=== PATIENT | male | born 1955 | race Caucasian/White ===

== ENCOUNTER 2016-07-02 15:48 | Emergency (ER) | payer BC ==
[~2016-07-02] VITALS: Ht 188 cm; Wt 147.4 kg
[~2016-07-02 15:48] MED LIST: /HCTZ25TA PO; /MOM400 PO; /SENOSTA PO; ASPI32ECTA PO; LISI5TAB PO; TYLE325T5 PO
[2016-07-02 15:49] VITALS: BP 146/80
[2016-07-02] MEDS ORDERED: ALLO100T PO (15:59)
[2016-07-02] MEDS ORDERED: TORS10TA3 PO (15:59)
[2016-07-02] MEDS ORDERED: CLEO300C2 PO (16:38)
[2016-07-02] MEDS ORDERED: NORCOTAB PO (16:38)
[2016-07-02] MEDS ORDERED: NORCO, ANEXSIA 5/325MG TABLET (HYDROcodone/ACETAMINOPHEN) PO ONE (16:45)
[2016-07-02] MEDS ORDERED: CLINDAMYCIN 150 MG CAP PO ONE (16:45)
[2016-07-03] MEDS ORDERED: NAPR500T PO (23:49)
== END 2016-07-02 16:50 | disposition home or self-care (01) ==
LOC: M ED 16:26
DX: L03.012 Cellulitis of left finger (principal); I10 Essential (primary) hypertension; M10.9 Gout, unspecified; F41.9 Anxiety disorder, unspecified; Z79.899 Other long term (current) drug therapy; G47.30 Sleep apnea, unspecified

== ENCOUNTER 2016-07-03 20:12 | Emergency (ER) | payer BC ==
[~2016-07-03] VITALS: Ht 188 cm; Wt 147.4 kg
[~2016-07-03 20:12] MED LIST changes: +ALLO100T PO; +CLEO300C2 PO; +NORCOTAB PO; +TORS10TA3 PO
[2016-07-03] MEDS ORDERED: ACETAMINOPHEN TAB 650MG DOSE (2X325MG) PO ONE (20:45)
[2016-07-03 22:18] LABS: BASO % 0.4 % (0.0-1.0); EOS # 0.2 K/mm3 (0.0-0.50); EOS % 2.2 % (0.0-3.0); LARGE UNSTAINED CELL # 0.1 K/mm3 (0.0-0.4); LARGE UNSTAINED CELL % 1.5 % (0.0-4.0); LYMPH # 1.5 K/mm3 (1.5-4.5); MEAN CORPUSCULAR HEMOGLOBIN 32.2 pg (27.0-33.0); MEAN CORPUSCULAR HGB CONC 35.9 g/dl (32.0-36.5); MEAN CORPUSCULAR VOLUME 89.6 fl (80.0-96.0); MONO # 0.4 K/mm3 (0.0-0.8); MONO % 4.9 % (0.0-5.0); NEUTROPHILS # 6.1 K/mm3 (1.8-7.7); PLATELET COUNT, AUTOMATED 124 k/mm3 (150-450); RED CELL DISTRIBUTION WIDTH 12.2 % (11.5-14.5); WHITE BLOOD COUNT 8.3 K/mm3 (4.0-10.0)
[2016-07-03 22:40] LABS: ANION GAP 6 MEQ/L (8-16); BLOOD UREA NITROGEN 17 MG/DL (7-18); CARBON DIOXIDE LEVEL 29 MEQ/L (21-32); CHLORIDE LEVEL 105 MEQ/L (98-107); CREATININE FOR GFR 1.12 MG/DL (0.70-1.30); GLOMERULAR FILTRATION RATE > 60.0 (>56); GLUCOSE, FASTING 110 MG/DL (70-105); POTASSIUM SERUM 3.4 MEQ/L (3.5-5.1); SODIUM LEVEL 140 MEQ/L (136-145)
[2016-07-03 22:41] LABS: ERYTHROCYTE SEDIMENTATION RATE 22 mm/hr (0-20)
[2016-07-03] MEDS ORDERED: CEFTAROLINE FOSAMIL 600 MG in D5W MINI-BAG PLUS 50 ML IV ONE (22:45)
[2016-07-03] MEDS ORDERED: HYDROmorphone HCL 1 MG/ML SYRINGE (J1170) IV ONE (22:45)
[2016-07-03] MEDS ORDERED: KETOROLAC 30 MG/ML VIAL (J1885) IV ONE (22:45)
[2016-07-03] MEDS ORDERED: NAPR500T PO (23:49)
[2016-07-03 23:59] VITALS: BP 116/69
--- NOTE | 2016-07-04 03:38 | REP ---
Clinical: Pain. Technique: AP, lateral, bilateral oblique views of the left hand. Findings: Mild age-related arthritic changes include joint space narrowing and subarticular sclerosis primarily involving the interphalangeal joints and to a lesser extent the first and second carpometacarpal joints where subtle marginal spurring is also identified. No acute fracture or dislocation. Impression: Mild age-related arthritic changes. Signed by Ming De Los Santos MD 07/04/2016 03:29 A
[2016-07-04] MEDS ORDERED: CLEO300C2 PO (17:23)
[2016-07-04] MEDS ORDERED: LISI-538 PO (17:23)
[2016-07-04] MEDS ORDERED: NAPR500T2 PO (17:23)
[2016-07-04] MEDS ORDERED: TORS10TA3 PO (17:23)
[2016-07-04] MEDS ORDERED: HYDR-3713 PO (17:23)
[2016-07-04] MEDS ORDERED: ALLO10TA PO (17:23)
== END 2016-07-03 23:59 | disposition home or self-care (01) ==
LOC: M ED 22:05
DX: L03.012 Cellulitis of left finger (principal); L03.124 Acute lymphangitis of left upper limb; I10 Essential (primary) hypertension; F41.9 Anxiety disorder, unspecified; Z79.899 Other long term (current) drug therapy
CPT/HCPCS: 73130; 80048; 85025; 85652; 86140; 87040; 96374; 96375; 99282; J1170; J1885

== ENCOUNTER 2016-07-04 13:46 | Inpatient (IN) | payer BC ==
[~2016-07-04] VITALS: Ht 193 cm; Wt 147.4 kg
[~2016-07-04 13:46] MED LIST changes: +NAPR500T PO
[2016-07-04] MEDS ORDERED: LIDOCAINE 2% MDV 20 ML VIAL As Ordered ONE (14:35)
[2016-07-04] MEDS ORDERED: LIDOCAINE 2% MDV 20 ML VIAL SC ONE (14:45)
[2016-07-04 15:16] LABS: BASO % 0.3 % (0.0-1.0); EOS # 0.2 K/mm3 (0.0-0.50); EOS % 2.5 % (0.0-3.0); LARGE UNSTAINED CELL # 0.1 K/mm3 (0.0-0.4); LARGE UNSTAINED CELL % 1.5 % (0.0-4.0); LYMPH # 1.5 K/mm3 (1.5-4.5); LYMPH % 17.2 % (24.0-44.0); MEAN CORPUSCULAR HEMOGLOBIN 31.4 pg (27.0-33.0); MEAN CORPUSCULAR HGB CONC 35.2 g/dl (32.0-36.5); MEAN CORPUSCULAR VOLUME 89.2 fl (80.0-96.0); MONO # 0.5 K/mm3 (0.0-0.8); MONO % 6.3 % (0.0-5.0); NEUTROPHILS # 5.8 K/mm3 (1.8-7.7); NEUTROPHILS % 72.2 % (36.0-66.0); PLATELET COUNT, AUTOMATED 130 k/mm3 (150-450); RED CELL DISTRIBUTION WIDTH 12.6 % (11.5-14.5); WHITE BLOOD COUNT 8.1 K/mm3 (4.0-10.0)
--- NOTE | 2016-07-04 15:24 | REP ---
FINGERS: HISTORY: Soft tissue infection left hand, second digit. COMPARISON: Left hand 07/03/2016. The osseous structures of the second digit are unchanged. There is diffuse soft tissue swelling which needs to be correlated clinically. Signed by Sebas Contreras DO 07/04/2016 04:53 P
[2016-07-04 15:35] LABS: URIC ACID 6.5 MG/DL (3.5-7.2)
[2016-07-04 15:52] LABS: ERYTHROCYTE SEDIMENTATION RATE 27 mm/hr (0-20)
[2016-07-04] MEDS ORDERED: MORPHINE 4 MG/ML 1ML SYRINGE IV ONE (16:30)
[2016-07-04] MEDS ORDERED: ONDANSETRON 4MG/2ML VIAL (J2405) IV ONE (16:30)
[2016-07-04] MEDS ORDERED: ALLO10TA PO (17:23)
[2016-07-04] MEDS ORDERED: CLEO300C2 PO (17:23)
[2016-07-04] MEDS ORDERED: TORS10TA3 PO (17:23)
[2016-07-04] MEDS ORDERED: HYDR-3713 PO (17:23)
[2016-07-04] MEDS ORDERED: NAPR500T2 PO (17:23)
[2016-07-04] MEDS ORDERED: LISI-538 PO (17:23)
[2016-07-04] MEDS ORDERED: ACETAMINOPHEN 500 MG TAB PO PRN (17:30)
[2016-07-04] MEDS ORDERED: ONDANSETRON 4 MG TAB (S0181) PO PRN (17:30)
[2016-07-04] MEDS ORDERED: PERCOCET 5MG/325MG TAB PO PRN (17:30)
[2016-07-04] MEDS ORDERED: MORPHINE 2 MG/ML 1ML SYRINGE IV PRN (17:30)
[2016-07-04] MEDS: AMPICILLIN SOD/SULBACTAM SOD 3 GM in D5W MINI-BAG PLUS 100 ML IV SCH (18:00)
[2016-07-04] MEDS ORDERED: KETOROLAC 30 MG/ML VIAL (J1885) IV ONE (18:15)
--- NOTE | 2016-07-04 18:42 | HPE ---
DATE OF ADMISSION: 07/04/2016 REASON FOR ADMISSION: Left index finger cellulitis with lymphangitis. Possible paronychia. HISTORY OF PRESENT ILLNESS: This is a 60-year-old right hand dominant male who has been to the emergency room. This is his third time now over the last several days with progressively worsening swelling that began over the dorsum of his left index finger distally over the distal interphalangeal (DIP) joint area. There is a small vesicle. He was seen, evaluated, and then started on some clindamycin and then he came back to the emergency room yesterday, continued to observe and then he came back again today with worsening swelling and pain, now it is spreading proximally over the dorsum of his finger to the dorsum of the hand. His temperature maximum on July 03 was 99.4. Today it is 99.7, but he was also noted to have an elevated sedimentation rate and CRP and his white count is beginning to climb. The ER physician put a needle in the dorsum of his finger and got some purulent material over the DIP joint area or the base of the nail and because of that I was called to see him for this. He is complaining of a significant amount of discomfort, pain and swelling and the pressure involving that left index finger. Other relevant history is a recent ear infection three week ago. PAST MEDICAL HISTORY: Significant for: Hypertension. History of heart murmur. History of bacterial endocarditis. History of cardiac procedure done when he was a young child, some type of valvular procedure back in 1962. History of sleep apnea. Obesity. Gout. He normally gets it in his left toe. PAST SURGICAL HISTORY: Cardiac catheterization. Some type of heart surgery when he was a young child. Left shoulder surgery. Right knee surgery. Testicular hernia surgery. PRIMARY CARE PROVIDER: Dr. Mohr. SOCIAL HISTORY: He works for [employer] here locally. He is . He is here with his . REVIEW OF SYSTEMS: Health survey is otherwise unremarkable. PHYSICAL EXAMINATION: He is a healthy alert male complaining of isolated soreness in the left index finger, predominantly. HEENT: Benign. LUNGS: Generally clear. HEART: Had a large pansystolic murmur. ABDOMEN: Obese. EXTREMITIES: Left upper extremity revealed some redness, cellulitis on the dorsum of his index finger, centered over the DIP joint, extending proximally over the MCP joint of the dorsum of his hand. The volar aspect of his finger is not markedly tender. I do feel that this is a flexor tenosynovitis picture. It is nontender volarly. Sensation is intact. Flexor extensor function is otherwise intact, but his finger is clearly swollen and stiff because of the dorsal swelling. X-rays of his left index finger are unremarkable for osteomyelitis or destructive lesion. LABORATORY STUDIES: His white count today is 8.1, with a hematocrit of 42.9, platelets of 130. Sed rate is 27, up from 22 yesterday. Chemistry showed a CRP of 4.44 yesterday, up to 5.09 today. Electrolytes showed a sodium of 140, potassium 3.4, chloride 105, bicarbonate 29, BUN 17, creatinine 1.12. Glucose 110. Uric acid was 6.5. Calcium of 9. Blood cultures from yesterday are pending. Culture from the aspirate done earlier this afternoon by the emergency room staff is pending. IMPRESSION: My is impression is this appears to have a picture of a worsening cellulitis and dorsal abscess of the left finger, possibly a paronychia or paronychia type variant. It may be just proximal to the nail plate. The small punctate area of drainage on the dorsum, at that region is a sign of an underlying abscess. I would recommend we consider opening this area and thoroughly irrigating and culturing it and then placing him on IV antibiotics as an inpatient in the hospital for observation. He is agreeable to this as well, so we elected to go ahead and proceed with that procedure and we will be admitting him to the hospital.
[2016-07-04 21:52] VITALS: BP 145/90
[2016-07-04] MEDS: PERCOCET 5MG/325MG TAB PO PRN (22:24)
[2016-07-05 01:00] VITALS: BP 125/60
[2016-07-05] MEDS: AMPICILLIN SOD/SULBACTAM SOD 3 GM in D5W MINI-BAG PLUS 100 ML IV SCH ×5 (01:06→23:20)
[2016-07-05] MEDS: PERCOCET 5MG/325MG TAB PO PRN ×5 (05:27→23:20)
[2016-07-05 07:44] LABS: BASO % 0.4 % (0.0-1.0); EOS # 0.2 K/mm3 (0.0-0.50); EOS % 3.5 % (0.0-3.0); LARGE UNSTAINED CELL # 0.1 K/mm3 (0.0-0.4); LARGE UNSTAINED CELL % 2.2 % (0.0-4.0); LYMPH # 1.2 K/mm3 (1.5-4.5); LYMPH % 18.9 % (24.0-44.0); MEAN CORPUSCULAR HEMOGLOBIN 31.8 pg (27.0-33.0); MEAN CORPUSCULAR HGB CONC 35.3 g/dl (32.0-36.5); MEAN CORPUSCULAR VOLUME 90.2 fl (80.0-96.0); MONO # 0.4 K/mm3 (0.0-0.8); MONO % 7.3 % (0.0-5.0); NEUTROPHILS # 3.9 K/mm3 (1.8-7.7); NEUTROPHILS % 67.7 % (36.0-66.0); PLATELET COUNT, AUTOMATED 108 k/mm3 (150-450); RED CELL DISTRIBUTION WIDTH 12.7 % (11.5-14.5); WHITE BLOOD COUNT 5.8 K/mm3 (4.0-10.0)
[2016-07-05 08:00] VITALS: BP 106/63
--- NOTE | 2016-07-05 08:18 | RO ---
DATE OF PROCEDURE: 07/04/2016 PREPROCEDURE DIAGNOSES: Abscess, cellulitis, paronychia dorsum left index finger. POSTPROCEDURE DIAGNOSES: Abscess, cellulitis, paronychia dorsum left index finger. PROCEDURE: Incision and drainage and culture of dorsal index finger abscess. SURGEON: Dr. 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 COMPLICATIONS: None. ESTIMATED BLOOD LOSS: SPECIMENS: Aerobic swab cultures. FINDINGS: He has some cloudy watery fluid in the dorsum of his index finger wound. DESCRIPTION OF PROCEDURE: After a sterile prep of his left hand, digital block was performed on the volar aspect at the base of his index finger and I also supplemented this with a dorsal block at the level of the PIP joint. Then a finger glove from the sterile glove was used to place over the finger condom style and then a small hole in the tip was made and rolled to the base of the finger as a tourniquet as marked combination. Then the longitudinal incision was made over the erupting abscess on the dorsal and the radial side at the base of the nail bed or region really of the DIP joint. Full thickness incision was made with a 15 blade. I was able to dissect over on top of the extensor tendon and I was able to open all the way to the ulnar side of the dorsum of the finger in subcutaneous area expelling some cloudy watery fluid. No gross purulence was noted. There did not appear to be fluid emanating out of the DIP joint. I carefully probed the entire area and then copiously irrigating it using a 50 mL syringe with an eye shield with sterile saline solution. Then I packed it open with iodoform quarter inch gauze and wrapped his finger with a sterile dressing and a two inch Chito. Tourniquet was released. PLAN: Admit him to the hospital, begin dressing changes in the morning. Will start him on Unasyn.
[2016-07-05 08:23] LABS: ANION GAP 9 MEQ/L (8-16); BLOOD UREA NITROGEN 20 MG/DL (7-18); CALCIUM LEVEL 8.1 MG/DL (8.5-10.1); CARBON DIOXIDE LEVEL 28 MEQ/L (21-32); CHLORIDE LEVEL 107 MEQ/L (98-107); CREATININE FOR GFR 0.98 MG/DL (0.70-1.30); GLOMERULAR FILTRATION RATE > 60.0 (>56); GLUCOSE, FASTING 98 MG/DL (70-105); POTASSIUM SERUM 3.6 MEQ/L (3.5-5.1); SODIUM LEVEL 144 MEQ/L (136-145)
[2016-07-05] MEDS: TORSEMIDE 10 MG TABLET PO SCH (09:28)
[2016-07-05] MEDS: LISINOPRIL 20 MG TAB PO SCH (09:28)
[2016-07-05] MEDS: ALLOPURINOL 100 MG TAB PO SCH (09:28)
[2016-07-05 12:00] VITALS: BP 116/60
[2016-07-05 16:00] VITALS: BP 120/58
[2016-07-05 20:00] VITALS: BP 115/72
[2016-07-06 04:00] VITALS: BP 113/54
[2016-07-06] MEDS: PERCOCET 5MG/325MG TAB PO PRN ×2 (05:12→13:11)
[2016-07-06] MEDS: AMPICILLIN SOD/SULBACTAM SOD 3 GM in D5W MINI-BAG PLUS 100 ML IV SCH ×3 (05:12→11:45)
[2016-07-06 07:22] LABS: BASO % 0.5 % (0.0-1.0); EOS # 0.2 K/mm3 (0.0-0.50); EOS % 4.8 % (0.0-3.0); LARGE UNSTAINED CELL # 0.1 K/mm3 (0.0-0.4); LARGE UNSTAINED CELL % 2.1 % (0.0-4.0); LYMPH # 1.3 K/mm3 (1.5-4.5); LYMPH % 23.1 % (24.0-44.0); MEAN CORPUSCULAR HEMOGLOBIN 31.4 pg (27.0-33.0); MEAN CORPUSCULAR HGB CONC 34.5 g/dl (32.0-36.5); MEAN CORPUSCULAR VOLUME 90.9 fl (80.0-96.0); MONO # 0.4 K/mm3 (0.0-0.8); MONO % 7.3 % (0.0-5.0); NEUTROPHILS # 3.2 K/mm3 (1.8-7.7); NEUTROPHILS % 62.2 % (36.0-66.0); PLATELET COUNT, AUTOMATED 124 k/mm3 (150-450); RED CELL DISTRIBUTION WIDTH 12.5 % (11.5-14.5); WHITE BLOOD COUNT 5.1 K/mm3 (4.0-10.0)
[2016-07-06 07:45] LABS: ANION GAP 7 MEQ/L (8-16); BLOOD UREA NITROGEN 20 MG/DL (7-18); CARBON DIOXIDE LEVEL 29 MEQ/L (21-32); CHLORIDE LEVEL 105 MEQ/L (98-107); CREATININE FOR GFR 1.03 MG/DL (0.70-1.30); GLOMERULAR FILTRATION RATE > 60.0 (>56); GLUCOSE, FASTING 105 MG/DL (70-105); POTASSIUM SERUM 3.5 MEQ/L (3.5-5.1); SODIUM LEVEL 141 MEQ/L (136-145)
[2016-07-06 08:00] VITALS: BP 106/58
[2016-07-06] MEDS ORDERED: MOM 30ML SUSPENSION UDC PO ONE (08:15)
[2016-07-06 08:24] LABS: ERYTHROCYTE SEDIMENTATION RATE 28 mm/hr (0-20)
[2016-07-06] MEDS ORDERED: PERC5TAB6 PO (08:31)
[2016-07-06] MEDS ORDERED: AUGM875T27 PO (08:31)
[2016-07-06 08:50] VITALS: BP 106/58
[2016-07-06] MEDS: TORSEMIDE 10 MG TABLET PO SCH (08:50)
[2016-07-06] MEDS: LISINOPRIL 20 MG TAB PO SCH (08:50)
[2016-07-06] MEDS: ALLOPURINOL 100 MG TAB PO SCH (08:50)
--- NOTE | 2016-07-08 15:43 | DSES ---
DATE OF ADMISSION: 07/04/2016 DATE OF DISCHARGE: 07/06/2016 ATTENDING PHYSICIAN: Dr. Izaguirre ADMITTING DIAGNOSES: Left index finger cellulitis and lymphangitis. OTHER DIAGNOSES: 1. Hypertension. 2. Obstructive sleep apnea. 3. Obesity. 4. Gout. DISCHARGE DIAGNOSES: Left index finger cellulitis with lymphangitis, status post incision and drainage with culture. HISTORY OF PRESENT ILLNESS: The patient is a 60-year-old male seen in the emergency room over several days with progressively worsening pain and swelling in his left index finger. The patient stated on clindamycin, but his symptoms worsened. Initially, pain and swelling were at the distal end at the dorsum of the finger at the distal interphalangeal joint, gradually it started to spread proximally through the dorsum of the hand/finger. Orthopedics was consulted and the patient consented for this elective incision and drainage of an abscess on the left dorsal index finger. OPERATION PERFORMED: Left index finger cellulitis with lymphangitis. HOSPITALIZATION COURSE: The patient underwent an incision and drainage with culture of an abscess on the dorsal surface of his left index finger. A digital block was performed. The patient's hospital course was without complication. He was discharged home on oral pain medications and antibiotic. He will resume his preoperative medications and diet. The patient is instructed to do twice daily wet to dry dressing changes and/or warm water soaks. He will followup in our office in approximately 5 days or sooner if there is any worsening symptoms. He is encouraged to contact our office sooner if there is any increased pain, drainage, bleeding, redness, fever greater than 101 degrees or any other concerns. Please see medical record for additional details.
== END 2016-07-06 13:20 | disposition home or self-care (01) | DRG 361 ==
LOC: M ED 15:59 → M ED INP 17:40 → M PED 22:12
PROVIDERS: ADMIT Orthopaedic Surgery; ATTEND Orthopaedic Surgery
PROC: 0HBGXZZ Excision of Left Hand Skin, External Approach (ICD-10-PCS; principal; 2016-07-04)
DX: L03.012 Cellulitis of left finger (principal); I10 Essential (primary) hypertension; G47.33 Obstructive sleep apnea (adult) (pediatric); M10.9 Gout, unspecified; E66.9 Obesity, unspecified

== ENCOUNTER → 2016-07-25 | Outpatient (REF) | payer BC ==
[~2016-07-25] MED LIST changes: +ALLO10TA PO; +AUGM875T27 PO; +HYDR-3713 PO; +LISI-538 PO; +NAPR500T2 PO; +PERC5TAB6 PO
[2016-07-25 13:35] LABS: MEAN CORPUSCULAR HEMOGLOBIN 32.1 pg (27.0-33.0); MEAN CORPUSCULAR HGB CONC 35.9 g/dl (32.0-36.5); MEAN CORPUSCULAR VOLUME 89.3 fl (80.0-96.0); RED CELL DISTRIBUTION WIDTH 12.9 % (11.5-14.5); WHITE BLOOD COUNT 4.4 K/mm3 (4.0-10.0)
[2016-07-25 14:03] LABS: EOSINOPHILS 3 % (0-5)
[2016-07-25 14:28] LABS: ERYTHROCYTE SEDIMENTATION RATE 15 mm/hr (0-20)
== END ==
LOC: M LABDRAW1 12:56
PROVIDERS: ATTEND Orthopaedic Surgery
DX: Z47.89 Encounter for other orthopedic aftercare (principal)

== ENCOUNTER 2016-09-07 15:59 | Emergency (ER) | payer BC ==
[~2016-09-07] VITALS: Ht 188 cm; Wt 145.9 kg
[~2016-09-07 15:59] MED LIST changes: -AUGM875T27 PO; +AUGM875T28 PO; -NAPR500T2 PO; +NAPR500T3 PO; +PERC5TAB12 PO; -PERC5TAB6 PO
[2016-09-07 18:48] LABS: BASO # 0.1 K/mm3 (0.0-0.2); BASO % 0.7 % (0.0-1.0); EOS # 0.1 K/mm3 (0.0-0.50); EOS % 1.1 % (0.0-3.0); LARGE UNSTAINED CELL # 0.2 K/mm3 (0.0-0.4); LYMPH # 0.9 K/mm3 (1.5-4.5); LYMPH % 10.8 % (24.0-44.0); MEAN CORPUSCULAR HEMOGLOBIN 31.3 pg (27.0-33.0); MEAN CORPUSCULAR HGB CONC 34.7 g/dl (32.0-36.5); MEAN CORPUSCULAR VOLUME 90.1 fl (80.0-96.0); MONO # 0.4 K/mm3 (0.0-0.8); NEUTROPHILS # 6.9 K/mm3 (1.8-7.7); NEUTROPHILS % 80.4 % (36.0-66.0); PLATELET COUNT, AUTOMATED 153 k/mm3 (150-450); RED CELL DISTRIBUTION WIDTH 12.2 % (11.5-14.5); WHITE BLOOD COUNT 8.6 K/mm3 (4.0-10.0)
[2016-09-07 19:11] LABS: ALBUMIN 3.5 GM/DL (3.2-5.2); ALBUMIN/GLOBULIN RATIO 0.92 (1.00-1.93); ALKALINE PHOSPHATASE 74 U/L (45-117); ALT/SGPT 35 U/L (12-78); AMYLASE 37 U/L (25-115); ANION GAP 8 MEQ/L (8-16); AST/SGOT 35 U/L (15-37); BILIRUBIN,DIRECT 0.2 MG/DL (0.0-0.2); BILIRUBIN,TOTAL 0.8 MG/DL (0.2-1.0); BLOOD UREA NITROGEN 20 MG/DL (7-18); CALCIUM LEVEL 9.3 MG/DL (8.5-10.1); CARBON DIOXIDE LEVEL 26 MEQ/L (21-32); CHLORIDE LEVEL 105 MEQ/L (98-107); CREATININE FOR GFR 1.08 MG/DL (0.70-1.30); GLOMERULAR FILTRATION RATE > 60.0 (>56); GLUCOSE, FASTING 93 MG/DL (70-105); POTASSIUM SERUM 3.7 MEQ/L (3.5-5.1); SODIUM LEVEL 139 MEQ/L (136-145); TOTAL PROTEIN 7.3 GM/DL (6.4-8.2)
[2016-09-07] MEDS ORDERED: ISOVUE-370 76% 100ML VIAL (Q9967) As Ordered ONE (19:16)
[2016-09-07 20:33] VITALS: BP 112/58
--- NOTE | 2016-09-07 20:50 | REPUSA ---
CLINICAL HISTORY: Left lower quadrant pain. TECHNIQUE: Multiple axial CT images were obtained through the abdomen and pelvis after administratio n of intravenous contrast material. COMMENTS: There is hepatic hypoattenuation compatible with fatty infiltration. There is evidence of Bochdalek hernia on the right side containing fat only. There is no intra or extrahepatic biliary ductal dilat ation. The spleen is normal. The gallbladder is within normal limits. The pancreas is of normal co ntour and attenuation characteristics. There is no evidence of adrenal mass. Both kidneys demonstrate prompt and equal nephrograms. The kidneys are normal in size, shape and con figuration. 7 mm cyst noted in the superior pole of the left kidney. No renal or ureteral calculi a re identified. There is no hydroureter or hydronephrosis. Small fat containing umbilical hernia is seen. No evidence for appendicitis. There is sigmoid diverticulosis present, no evidence of diverticulitis . No evidence for small or large bowel obstruction. There is no evidence of abdominal ascites or ly mphadenopathy. There is no evidence of intrinsic or extrinsic bladder mass. There is no pelvic ascites or lymphaden opathy. Prostate gland is moderately enlarged containing dense calcifications. Please correlate with PSA lev el. Images of the lung bases show no evidence of pleural or parenchymal mass. There are no pleural effus ions. The bony structures are free of lytic or blastic lesions. There is evidence of segmentation a nomaly with butterfly L5 vertebral body noted. IMPRESSION: 1. Sigmoid diverticulosis without evidence of diverticulitis. 2. There is hepatic hypoattenuation compatible with fatty infiltration. There is evidence of Bochdal ek hernia on the right side containing fat only. 3. 7 mm cyst noted in the superior pole of the left kidney. 4. Small fat containing umbilical hernia is seen. 5. Prostate gland is moderately enlarged containing dense calcifications. Please correlate with PSA levels. Thank you for your kind referral of this patient. We appreciate the opportunity to participate in th is patient's care.
--- NOTE | 2016-09-08 15:28 | ED PDOC ---
Post-Departure Follow-Up dr álvarez faxed formal report of ct abd/p for fu Francisco Sims MD Sep 08, 2016 15:28
== END 2016-09-07 21:23 | disposition home or self-care (01) ==
LOC: M ED 15:59
DX: N40.0 Benign prostatic hyperplasia without lower urinary tract symptoms (principal); K59.00 Constipation, unspecified; K57.30 Diverticulosis of large intestine without perforation or abscess without bleeding; K76.0 Fatty (change of) liver, not elsewhere classified; K42.9 Umbilical hernia without obstruction or gangrene; N28.1 Cyst of kidney, acquired; I10 Essential (primary) hypertension; E66.9 Obesity, unspecified; F99 Mental disorder, not otherwise specified; Z87.891 Personal history of nicotine dependence; Z79.899 Other long term (current) drug therapy
CPT/HCPCS: 74177; 80048; 80076; 81001; 82150; 83690; 85025; 99283; Q9967

== ENCOUNTER → 2018-11-26 | Outpatient (CLI) | payer BC ==
[~2018-11-26] MED LIST changes: -/HCTZ25TA PO; -/MOM400 PO; -/SENOSTA PO; +HYDR-3644 PO; +HYDR-3715 PO; +LISI-542 PO; +MILK10SU PO; +NAPR-837 PO; +NAPR-885 PO; -NAPR500T PO; -NAPR500T3 PO; -NORCOTAB PO; +PRED50TA PO; +SENO1TAB PO
[2018-11-26 20:15] LABS: ALBUMIN 3.4 GM/DL (3.2-5.2); ALT/SGPT 35 U/L (12-78); BILIRUBIN,TOTAL 0.4 MG/DL (0.2-1.0); BLOOD UREA NITROGEN 16 MG/DL (7-18); CALCIUM LEVEL 9.4 MG/DL (8.8-10.2); CARBON DIOXIDE LEVEL 31 MEQ/L (21-32); CHLORIDE LEVEL 105 MEQ/L (98-107); CREATININE FOR GFR 1.14 MG/DL (0.70-1.30); GLOMERULAR FILTRATION RATE > 60.0 (>49); GLUCOSE, FASTING 101 MG/DL (70-100); POTASSIUM SERUM 3.9 MEQ/L (3.5-5.1); SODIUM LEVEL 143 MEQ/L (136-145); TOTAL PROTEIN 6.7 GM/DL (6.4-8.2); URIC ACID 5.1 MG/DL (3.5-7.2)
[2018-11-26 20:17] LABS: BASO % 0.7 % (0.0-1.0); EOS # 0.2 10^3/uL (0.0-0.5); EOS % 3.6 % (0.0-3.0); HEMATOCRIT 40.5 % (42.0-52.0); HEMOGLOBIN 13.7 g/dl (13.5-17.5); LYMPH # 1.4 10^3/uL (1.5-5.0); LYMPH % 23.5 % (24.0-44.0); MEAN CORPUSCULAR HEMOGLOBIN 31.4 pg (27.0-33.0); MEAN CORPUSCULAR HGB CONC 33.8 g/dl (32.0-36.5); MEAN CORPUSCULAR VOLUME 92.9 fl (80.0-96.0); MONO # 0.6 10^3/uL (0.0-0.8); MONO % 9.8 % (0.0-5.0); NEUTROPHILS # 3.8 10^3/uL (1.5-8.5); NEUTROPHILS % 61.6 % (36.0-66.0); PLATELET COUNT, AUTOMATED 133 10^3/uL (150-450); RED BLOOD COUNT 4.36 10^6/uL (4.30-6.10); WHITE BLOOD COUNT 6.1 10^3/uL (4.0-10.0)
== END ==
LOC: M WUC 17:23
PROVIDERS: ATTEND Physician Assistant
DX: M79.672 Pain in left foot (principal)

== ENCOUNTER 2018-11-30 07:53 | Day surgery (SDC) | payer BC ==
[~2018-11-30] VITALS: Ht 188 cm; Wt 137.6 kg
[~2018-11-30 07:53] MED LIST changes: +NS 1,000 ML IV ONE; -PRED50TA PO
[2018-11-30] MEDS ORDERED: PRED50TA PO (08:23)
[2018-11-30] MEDS ORDERED: PROPOFOL 500 MG/50 ML VIAL As Ordered ONE (08:39)
[2018-11-30] MEDS ORDERED: LIDOCAINE 2% INJ 100 MG/5 ML SDV (FOR ANES.) As Ordered ONE (08:39)
--- NOTE | 2018-11-30 09:02 | ROOR ---
Patient Name: Adin Seth Procedure Date: 11/30/2018 8:34 AM Date of : 1955 Age: 63 Room: [facility] Gender: Male Note Status: Finalized Procedure: Colonoscopy Indications: Screening for colorectal malignant neoplasm Providers: Ryne SAVAGE MD Referring MD: GILMER SIDDIQI MD Requesting Provider: Medicines: Monitored Anesthesia Care Complications: No immediate complications. Procedure: Pre-Anesthesia Assessment: - The heart rate, respiratory rate, oxygen saturations, blood pressure, adequacy of pulmonary ventilation, and response to care were monitored throughout the procedure. The Colonoscope was introduced through the anus and advanced to the cecum, identified by appendiceal orifice and ileocecal valve. The colonoscopy was performed without difficulty. The patient tolerated the procedure well. The quality of the bowel preparation was good. Findings: The perianal and digital rectal examinations were normal. Multiple medium-mouthed diverticula were found in the sigmoid colon. The exam was otherwise without abnormality on direct and retroflexion views. Impression: - Diverticulosis in the sigmoid colon. - The examination was otherwise normal on direct and retroflexion views. - No specimens collected. Recommendation: - Repeat colonoscopy in 10 years for screening purposes. Ryne Savage MD Ryne SAVAGE MD 11/30/2018 9:02:09 AM Electronically signed by Ryne SAVAGE MD Number of Addenda: 0 Note Initiated On: 11/30/2018 8:34 AM Estimated Blood Loss: Estimated blood loss: none.
[2018-11-30 09:21] VITALS: BP 150/74
== END 2018-11-30 09:37 | disposition home or self-care (01) ==
LOC: M OPP 07:53
PROVIDERS: ATTEND Internal Medicine Gastroenterology
DX: Z12.11 Encounter for screening for malignant neoplasm of colon (principal); K57.30 Diverticulosis of large intestine without perforation or abscess without bleeding; I34.1 Nonrheumatic mitral (valve) prolapse; G47.30 Sleep apnea, unspecified; Z79.899 Other long term (current) drug therapy

== ENCOUNTER 2020-02-11 20:22 | Emergency (ER) | payer BC ==
[~2020-02-11] VITALS: Ht 188 cm; Wt 109.1 kg
[~2020-02-11 20:22] MED LIST changes: -NS 1,000 ML IV ONE; +PRED50TA PO
[2020-02-11] MEDS ORDERED: METOPROLOL 5 MG/5 ML VIAL IV STA (21:07)
[2020-02-11 21:18] LABS: BASO % 0.3 % (0.0-1.0); EOS # 0.1 10^3/uL (0.0-0.5); HEMOGLOBIN 16.7 g/dl (13.5-17.5); LYMPH # 1.5 10^3/uL (1.5-5.0); LYMPH % 21.7 % (24.0-44.0); MEAN CORPUSCULAR HEMOGLOBIN 30.8 pg (27.0-33.0); MEAN CORPUSCULAR HGB CONC 33.4 g/dl (32.0-36.5); MEAN CORPUSCULAR VOLUME 92.3 fl (80.0-96.0); MONO # 0.5 10^3/uL (0.0-0.8); NEUTROPHILS # 4.6 10^3/uL (1.5-8.5); NEUTROPHILS % 68.7 % (36.0-66.0); PLATELET COUNT, AUTOMATED 125 10^3/uL (150-450); RED BLOOD COUNT 5.42 10^6/uL (4.30-6.10); WHITE BLOOD COUNT 6.8 10^3/uL (4.0-10.0)
[2020-02-11 21:28] LABS: INR 1.05; PROTHROMBIN TIME 13.9 SECONDS (12.5-14.3)
[2020-02-11 21:29] LABS: PARTIAL THROMBOPLASTIN TIME 36.9 SECONDS (24.2-38.5)
[2020-02-11 21:35] VITALS: BP 108/62
[2020-02-11] MEDS ORDERED: NS 500 ML IV ONE (21:45)
[2020-02-11 21:48] LABS: ALBUMIN 4.2 GM/DL (3.2-5.2); BILIRUBIN,DIRECT 0.2 MG/DL (0.0-0.2); BILIRUBIN,TOTAL 0.6 MG/DL (0.2-1.0); CALCIUM LEVEL 9.8 MG/DL (8.8-10.2); CK-MB VALUE MASS 6.1 NG/ML (<3.6); CREATININE FOR GFR 1.39 MG/DL (0.70-1.30); FREE T4 1.25 NG/DL (0.76-1.46); GLOMERULAR FILTRATION RATE 55.1 (>49); MB/CK RELATIVE INDEX 2.57 (< OR =4); POTASSIUM SERUM 3.9 MEQ/L (3.5-5.1); THYROID STIMULATING HORMONE 0.868 uIU/ML (0.358-3.740); TOTAL PROTEIN 7.7 GM/DL (6.4-8.2); TROPONIN I 0.02 NG/ML (< 0.10)
--- NOTE | 2020-02-11 22:05 | REPVR ---
PROCEDURE INFORMATION: Exam: XR Chest, 1 View Exam date and time: 02/11/2020 9:45 PM Age: 64 years old Clinical indication: Chest pain; Type not specified TECHNIQUE: Imaging protocol: XR of the chest Views: 1 view. COMPARISON: No relevant prior studies available. FINDINGS: Lungs: Convex density in medial aspect of the right lower lobe abutting the right hemidiaphragm. Finding may represent a prominent pericardial fat pad or posterior diaphragmatic hernia. Lungs otherwise clear. Pleural space: Unremarkable. No pleural effusion. No pneumothorax. Heart/Mediastinum: See "Lungs" finding. Otherwise unremarkable. Bones/joints: Unremarkable. IMPRESSION: No acute findings. Electronically signed by: Al Guevara On 02/11/2020 22:05:00 PM
[2020-02-11] MEDS ORDERED: ISOVUE-370 76% 100ML VIAL As Ordered ONE (22:31)
[2020-02-11 23:25] VITALS: BP 101/62
--- NOTE | 2020-02-12 08:43 | ECGEPIP ---
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
== END 2020-02-11 23:26 | disposition home or self-care (01) ==
LOC: M ED 20:22
DX: R10.13 Epigastric pain (principal); I48.91 Unspecified atrial fibrillation; I48.92 Unspecified atrial flutter; I45.10 Unspecified right bundle-branch block; I44.4 Left anterior fascicular block; R01.1 Cardiac murmur, unspecified; G47.30 Sleep apnea, unspecified; F17.200 Nicotine dependence, unspecified, uncomplicated

== ENCOUNTER 2020-06-06 13:08 | Emergency (ER) | payer BC ==
[~2020-06-06] VITALS: Ht 188 cm; Wt 111.4 kg
[~2020-06-06 13:08] MED LIST changes: -LISI-538 PO; -LISI-542 PO; +LISI-898 PO; +LISI20TA33 PO
--- NOTE | 2020-06-06 14:44 | REP ---
INDICATION: left knee pain COMPARISON: None. TECHNIQUE: There are five views. FINDINGS: There is no fracture or dislocation. Mineralization and joint spaces are normal. There are no calcifications or foreign bodies. There is no effusion. IMPRESSION: Essentially negative left knee. <Electronically signed by Charles Avalos > 06/06/20 [id number]
[2020-06-06 15:03] LABS: BASO % 0.5 % (0.0-1.0); EOS # 0.2 10^3/uL (0.0-0.5); EOS % 2.6 % (0.0-3.0); HEMATOCRIT 42.5 % (42.0-52.0); HEMOGLOBIN 14.3 g/dl (13.5-17.5); LYMPH # 0.7 10^3/uL (1.5-5.0); LYMPH % 11.4 % (24.0-44.0); MEAN CORPUSCULAR HEMOGLOBIN 31.6 pg (27.0-33.0); MEAN CORPUSCULAR HGB CONC 33.6 g/dl (32.0-36.5); MEAN CORPUSCULAR VOLUME 93.8 fl (80.0-96.0); MONO # 0.5 10^3/uL (0.0-0.8); MONO % 8.6 % (2.0-8.0); NEUTROPHILS # 4.3 10^3/uL (1.5-8.5); NEUTROPHILS % 76.4 % (36.0-66.0); PLATELET COUNT, AUTOMATED 121 10^3/uL (150-450); RED BLOOD COUNT 4.53 10^6/uL (4.30-6.10); WHITE BLOOD COUNT 5.7 10^3/uL (4.0-10.0)
[2020-06-06 15:12] LABS: INR 1.02; PROTHROMBIN TIME 13.6 SECONDS (12.5-14.3)
[2020-06-06 15:13] LABS: PARTIAL THROMBOPLASTIN TIME 35.6 SECONDS (24.2-38.5)
[2020-06-06 15:23] LABS: ERYTHROCYTE SEDIMENTATION RATE 15 mm/hr (0-20)
[2020-06-06 15:26] LABS: BLOOD UREA NITROGEN 23 MG/DL (7-18); CALCIUM LEVEL 8.7 MG/DL (8.8-10.2); CARBON DIOXIDE LEVEL 26 MEQ/L (21-32); CHLORIDE LEVEL 109 MEQ/L (98-107); CREATININE FOR GFR 0.82 MG/DL (0.70-1.30); GLOMERULAR FILTRATION RATE > 60.0 (>49); GLUCOSE, FASTING 91 MG/DL (70-100); POTASSIUM SERUM 3.9 MEQ/L (3.5-5.1); SODIUM LEVEL 142 MEQ/L (136-145); URIC ACID 5.7 MG/DL (3.5-7.2)
--- NOTE | 2020-06-06 16:05 | REP ---
INDICATION: r/o dvt LLE. COMPARISON: None. TECHNIQUE: Duplex ultrasound of the left lower extremity deep veins. FINDINGS: The left lower extremity deep veins demonstrate normal compression, normal Doppler color flow and normal Doppler waveforms throughout except for the left popliteal vein. There is occlusive thrombus in the popliteal vein. There is no thrombus within the left lower extremity deep venous system otherwise. IMPRESSION: Occluding thrombus in the left popliteal vein. <Electronically signed by Charles Avalos > 06/06/20 [id number]
[2020-06-06] MEDS ORDERED: ISOVUE-370 76% 100ML VIAL As Ordered ONE (16:29)
[2020-06-06 16:36] LABS: NT-PRO BNP 337 PG/ML (<125)
--- NOTE | 2020-06-06 17:38 | REPVR ---
PROCEDURE INFORMATION: Exam: CTA Chest With Contrast Exam date and time: 06/06/2020 4:34 PM Age: 64 years old Clinical indication: Chest pain; Additional info: R/O pe TECHNIQUE: Imaging protocol: Computed tomographic angiography of the chest with contrast. 3D rendering (Not supervised by radiologist): MIP and/or 3D reconstructed images were created by the technologist. Radiation optimization: All CT scans at this facility use at least one of these dose optimization techniques: automated exposure control; mA and/or kV adjustment per patient size (includes targeted exams where dose is matched to clinical indication); or iterative reconstruction. Contrast material: ISOVUE 370; Contrast volume: 75 ml; Contrast route: INTRAVENOUS (IV); COMPARISON: CR PORTABLE CHEST X-RAY 02/11/2020 9:23 PM FINDINGS: Pulmonary arteries: Filling defects within the lobar artery of the right lower lobe and at least 1 right lower lobe segmental pulmonary arteries. Aorta: Mild atherosclerosis of the thoracic aorta. Dilatation of the ascending thoracic aorta with an AP diameter of 4.5 cm No thoracic aortic dissection. Lungs: Unremarkable. No consolidation. No masses. Pleural spaces: Unremarkable. No pneumothorax. No pleural effusion. Heart: No CT scan evidence of right heart strain. Lymph nodes: No pathologically enlarged lymph nodes identified. Bones/joints: Degenerative spondylosis of the thoracic spine. No acute fracture. Soft tissues: Right posterior medial diaphragmatic Bochdalek hernia containing fat. IMPRESSION: 1. Examination positive for pulmonary emboli within lobar and segmental pulmonary arteries of the right lower lobe. 2. Ascending thoracic aortic aneurysm measuring 4.5 cm. Electronically signed by: Parth Matos On 06/06/2020 17:38:31 PM
[2020-06-06] MEDS ORDERED: MORPHINE 4 MG/ML 1ML VIAL/SYRINGE (J2270) IV ONE ×2 (19:55→20:35)
[2020-06-06] MEDS ORDERED: ONDANSETRON 4MG/2ML VIAL IV ONE (19:55)
[2020-06-06 20:03] LABS: TROPONIN I < 0.02 NG/ML (< 0.10)
[2020-06-06] MEDS ORDERED: APIXABAN 5 MG TAB (ELIQUIS) PO ONE ×2 (20:15→20:25)
[2020-06-06] MEDS ORDERED: NORCO 5/325MG TABLET (BULK FOR ED) PO ONE (20:15)
[2020-06-06] MEDS ORDERED: ANEC4CRE3 TOP (20:29)
[2020-06-06] MEDS ORDERED: ELIQ5TAB PO (20:29)
[2020-06-06] MEDS ORDERED: HYDR-3715 PO (20:29)
[2020-06-06 21:03] VITALS: BP 144/78
[2020-06-11 12:29] LABS: DRVV SCREEN 44.2 SEC
[2020-06-11 12:39] LABS: PTT LUPUS TYPE ANTICOAG SCREEN 1.1 (0-1.2)
== END 2020-06-06 21:05 | disposition home or self-care (01) ==
LOC: M ED 13:08
DX: I26.99 Other pulmonary embolism without acute cor pulmonale (principal); I82.432 Acute embolism and thrombosis of left popliteal vein; I71.2 Thoracic aortic aneurysm, without rupture; M25.562 Pain in left knee; I10 Essential (primary) hypertension; R01.1 Cardiac murmur, unspecified; M10.9 Gout, unspecified; F07.81 Postconcussional syndrome; Z79.01 Long term (current) use of anticoagulants; Z79.899 Other long term (current) drug therapy
CPT/HCPCS: 36415; 71275; 73564; 80048; 81240; 83880; 84311; 84484; 84550; 85025; 85300; 85301; 85303; 85305; 85610; 85652; 85730; 86140; 86147; 93971; 96374; 96375; 96376; 99284; J2270; J2405; Q9967

== ENCOUNTER 2022-08-17 11:16 | Emergency (ER) | payer BC ==
[~2022-08-17] VITALS: Ht 188 cm; Wt 140.1 kg
[2022-08-17 13:56] LABS: BASO % 0.6 % (0.0-1.0); EOS # 0.1 10^3/uL (0.0-0.5); HEMATOCRIT 40.3 % (42.0-52.0); HEMOGLOBIN 13.7 g/dl (13.5-17.5); LYMPH % 20.6 % (24.0-44.0); MEAN CORPUSCULAR HEMOGLOBIN 30.6 pg (27.0-33.0); MEAN CORPUSCULAR VOLUME 90.2 fl (80.0-96.0); MONO # 0.5 10^3/uL (0.0-0.8); MONO % 9.5 % (2.0-8.0); NEUTROPHILS # 3.4 10^3/uL (1.5-8.5); NEUTROPHILS % 66.7 % (36.0-66.0); PLATELET COUNT, AUTOMATED 170 10^3/uL (150-450); RED BLOOD COUNT 4.47 10^6/uL (4.30-6.10)
[2022-08-17 14:20] LABS: INR 1.01; PROTHROMBIN TIME 13.5 SECONDS (12.5-14.5)
[2022-08-17 14:21] LABS: ALBUMIN 3.5 G/DL (3.2-5.2); ALKALINE PHOSPHATASE 111 U/L (46-116); ALT/SGPT 39 U/L (7.0-40); AST/SGOT 42 U/L (<34); BILIRUBIN,DIRECT 0.3 MG/DL (<0.4); BILIRUBIN,TOTAL 0.6 MG/DL (0.3-1.2); BLOOD UREA NITROGEN 17 MG/DL (9-23); CALCIUM LEVEL 9.1 MG/DL (8.3-10.6); CARBON DIOXIDE LEVEL 26 MMOL/L (20-31); CHLORIDE LEVEL 108 MMOL/L (98-107); CREATININE FOR GFR 0.85 MG/DL (0.70-1.30); GLOMERULAR FILTRATION RATE > 60.0 (>49); GLUCOSE, FASTING 83 MG/DL (74-106); PARTIAL THROMBOPLASTIN TIME 31.8 SECONDS (24.8-34.2); POTASSIUM SERUM 4.2 MMOL/L (3.5-5.1); SODIUM LEVEL 141 MMOL/L (136-145); TOTAL PROTEIN 6.6 G/DL (5.7-8.2)
[2022-08-17 14:32] VITALS: BP 182/86; TEMP 98; O2SAT 97
[2022-08-17] MEDS ORDERED: ELIQ5TAB PO (14:43)
[2022-08-17] MEDS ORDERED: APIXABAN 5 MG TAB (ELIQUIS) PO ONE (14:45)
== END 2022-08-17 15:03 | disposition home or self-care (01) ==
LOC: M ED 11:16
DX: I82.401 Acute embolism and thrombosis of unspecified deep veins of right lower extremity (principal); I10 Essential (primary) hypertension; G47.33 Obstructive sleep apnea (adult) (pediatric); Z86.718 Personal history of other venous thrombosis and embolism; Z79.01 Long term (current) use of anticoagulants

== ENCOUNTER → 2022-08-17 | Outpatient (CLI) | payer BC ==
[~2022-08-17] MED LIST changes: +ANEC4CRE3 TOP; +ELIQ5TAB PO; -LISI-898 PO; +LISI5TAB11 PO
== END ==
LOC: M RAD 09:33
PROVIDERS: ATTEND Physician Assistant
DX: R03.0 Elevated blood-pressure reading, without diagnosis of hypertension (principal); R22.41 Localized swelling, mass and lump, right lower limb; I82.411 Acute embolism and thrombosis of right femoral vein; I82.431 Acute embolism and thrombosis of right popliteal vein

== ENCOUNTER → 2022-10-14 | Outpatient (REF) | payer BC ==
[2022-10-14 17:23] LABS: ALBUMIN 3.7 G/DL (3.2-5.2); BLOOD UREA NITROGEN 17 MG/DL (9-23); CARBON DIOXIDE LEVEL 26 MMOL/L (20-31); CHLORIDE LEVEL 109 MMOL/L (98-107); CREATININE FOR GFR 0.99 MG/DL (0.70-1.30); GLOMERULAR FILTRATION RATE > 60.0 (>49); GLUCOSE, FASTING 90 MG/DL (74-106); PHOSPHORUS LEVEL 3.1 MG/DL (2.4-5.1); POTASSIUM SERUM 4.6 MMOL/L (3.5-5.1); SODIUM LEVEL 142 MMOL/L (136-145)
== END ==
LOC: M WUC 16:21 → M LAB REF 16:21
PROVIDERS: ATTEND Physician Assistant
DX: I10 Essential (primary) hypertension (principal)